=== PATIENT | female | born 1980 | race Caucasian/White ===

== ENCOUNTER 2018-07-26 01:23 | Inpatient (IN) | payer MEDICAID ==
[2018-07-26] MEDS ORDERED: OXYTOCIN 30 UNITS/LR 500 ML IV (01:30)
[2018-07-26] MEDS ORDERED: MISOPROSTOL 200 MCG TAB PR (01:30)
[2018-07-26] MEDS ORDERED: CARBOPROST 250 MCG INJ IM (01:30)
[2018-07-26] MEDS: TERBUTALINE 1 MG/ML INJ SC (01:46)
[2018-07-26] MEDS: LACTATED RINGER'S 1,000 ML IV ×4 (01:47→17:53)
[2018-07-26 01:55] LABS: ADD MAN DIFF? NO
[2018-07-26 01:57] LABS: WHITE BLOOD COUNT 7.5 10^3/ul (4.8-10.8)
[2018-07-26 01:57] LABS: BASOPHILS % 0.5 % (0.0-2.0); EOSINOPHILS # 0.1 10^3/ul (0.0-0.5); EOSINOPHILS % 0.9 % (0.0-7.0); HEMATOCRIT 38.2 % (37.0-47.0); LYMPHOCYTES # 1.5 10^3/ul (0.8-2.9); LYMPHOCYTES % 19.7 % (15.0-51.0); MEAN CORPUSCULAR HEMOGLOBIN 30.2 pg (29.0-33.0); MEAN CORPUSCULAR VOLUME 88.6 fl (82.0-101.0); MEAN PLATELET VOLUME 9.2 fl (7.4-10.4); MONOCYTE # 0.7 10^3/ul (0.3-0.9); MONOCYTES % 8.9 % (0.0-11.0); NEUTROPHIL # 5.1 10^3/ul (1.6-7.5); NEUTROPHILS % 67.6 % (39.0-77.0); PLATELET COUNT 184 10^3/UL (140-415); RED BLOOD COUNT 4.31 10^6/ul (4.20-5.40)
[2018-07-26 02:17] LABS: INR 0.87; PROTIME 11.9 Sec (11.9-14.9); PT RATIO 0.9
[2018-07-26 02:18] LABS: PARTIAL THROMBOPLASTIN TIME 29.5 Sec (23.0-35.0)
[2018-07-26] MEDS: AZITHROMYCIN 500MG/NS (PMX) 250 ML IVPB (02:37)
[2018-07-26] MEDS: ONDANSETRON 4 MG INJ IV ×2 (02:37→03:00)
[2018-07-26] MEDS: CITRIC ACID/NA CITRATE 30 ML CUP PO ×2 (02:37→03:00)
[2018-07-26] MEDS ORDERED: DEXAMETHASONE 4 MG/ML 1 ML INJ (03:22)
[2018-07-26] MEDS ORDERED: morphine SULFATE/PF (10 MG/10 ML) INJ (03:22)
[2018-07-26 03:42] LABS: HEPATITIS B SURFACE ANTIGEN NEGATIVE (NEGATIVE)
[2018-07-26] MEDS ORDERED: ONDANSETRON 4 MG INJ IV (04:30)
[2018-07-26] MEDS ORDERED: ZOLPIDEM 5 MG TAB PO (04:30)
[2018-07-26] MEDS ORDERED: NALOXONE (0.4 MG/ML) INJ IV (04:30)
[2018-07-26] MEDS ORDERED: DIPHENHYDRAMINE 50 MG INJ IV (04:30)
[2018-07-26] MEDS ORDERED: HYDROmorphONE 0.5 MG/0.5 ML SYG IV ×2 (04:30)
[2018-07-26] MEDS: OXYTOCIN 30 UNITS/LR 500 ML IV ×4 (05:15→16:14)
[2018-07-26] MEDS: METHYLERGONOVINE 0.2 MG INJ IM (06:16)
[2018-07-26] MEDS: CEFAZOLIN 2 GM/50 ML (PMX) 50 ML IVPB (06:18)
[2018-07-26] MEDS ORDERED: NACL 0.9% 3 ML SYG IV (06:30)
[2018-07-26] MEDS ORDERED: METHYLERGONOVINE 0.2 MG INJ IM (06:30)
[2018-07-26] MEDS: CARBOPROST 250 MCG INJ IM (06:44)
[2018-07-26] MEDS: MISOPROSTOL 200 MCG TAB PR (06:50)
[2018-07-26] MEDS: KETOROLAC 30 MG INJ IV ×2 (07:08→17:53)
[2018-07-26 07:49] LABS: ADD MAN DIFF? NO
[2018-07-26 07:55] LABS: BASOPHILS % 0.1 % (0.0-2.0); EOSINOPHILS % 0.1 % (0.0-7.0); HEMATOCRIT 39.1 % (37.0-47.0); HEMOGLOBIN 13.1 g/dl (12.0-16.0); LYMPHOCYTES # 0.8 10^3/ul (0.8-2.9); LYMPHOCYTES % 5.6 % (15.0-51.0); MEAN CORPUSCULAR HEMOGLOBIN 29.9 pg (29.0-33.0); MEAN CORPUSCULAR HGB CONC 33.5 g/dl (32.0-37.0); MEAN CORPUSCULAR VOLUME 89.3 fl (82.0-101.0); MEAN PLATELET VOLUME 9.2 fl (7.4-10.4); MONOCYTE # 0.4 10^3/ul (0.3-0.9); MONOCYTES % 2.6 % (0.0-11.0); NEUTROPHIL # 13.3 10^3/ul (1.6-7.5); NEUTROPHILS % 90.4 % (39.0-77.0); PLATELET COUNT 183 10^3/UL (140-415); RED BLOOD COUNT 4.38 10^6/ul (4.20-5.40); RED CELL DISTRIBUTION WIDTH 14.1 % (11.5-14.5)
[2018-07-26 07:55] LABS: WHITE BLOOD COUNT 14.7 10^3/ul (4.8-10.8)
[2018-07-26 08:12] LABS: INR 0.88; PT RATIO 0.9
[2018-07-26 08:13] LABS: PARTIAL THROMBOPLASTIN TIME 29.2 Sec (23.0-35.0)
[2018-07-26 22:37] LABS: RAPID PLASMA REAGIN NONREACTIVE (NR)
[2018-07-27] MEDS: LACTATED RINGER'S 1,000 ML IV ×2 (03:32→09:05)
[2018-07-27] MEDS: KETOROLAC 30 MG INJ IV (03:48)
[2018-07-27] MEDS: IBUPROFEN 800 MG TAB PO ×3 (06:00→17:57)
[2018-07-27 06:33] LABS: ADD MAN DIFF? NO
[2018-07-27 06:43] LABS: BASOPHILS % 0.3 % (0.0-2.0); EOSINOPHILS % 0.4 % (0.0-7.0); HEMATOCRIT 26.7 % (37.0-47.0); HEMOGLOBIN 9.1 g/dl (12.0-16.0); LYMPHOCYTES # 1.3 10^3/ul (0.8-2.9); LYMPHOCYTES % 13.6 % (15.0-51.0); MEAN CORPUSCULAR HEMOGLOBIN 30.8 pg (29.0-33.0); MEAN CORPUSCULAR HGB CONC 34.1 g/dl (32.0-37.0); MEAN CORPUSCULAR VOLUME 90.5 fl (82.0-101.0); MEAN PLATELET VOLUME 9.5 fl (7.4-10.4); MONOCYTE # 0.9 10^3/ul (0.3-0.9); MONOCYTES % 9.1 % (0.0-11.0); NEUTROPHIL # 7.3 10^3/ul (1.6-7.5); NEUTROPHILS % 74.8 % (39.0-77.0); PLATELET COUNT 148 10^3/UL (140-415); RED BLOOD COUNT 2.95 10^6/ul (4.20-5.40); RED CELL DISTRIBUTION WIDTH 14.2 % (11.5-14.5)
[2018-07-27 06:43] LABS: WHITE BLOOD COUNT 9.8 10^3/ul (4.8-10.8)
[2018-07-27] MEDS: LANOLIN HPA 1 PKT TOP (08:53)
[2018-07-27] MEDS: OXYCODONE/ACETAMINOPHEN (5/325) TAB PO ×2 (08:53→16:09)
[2018-07-28] MEDS: IBUPROFEN 800 MG TAB PO ×5 (00:20→23:50)
[2018-07-28] MEDS: OXYCODONE/ACETAMINOPHEN (5/325) TAB PO (10:23)
[2018-07-28] MEDS: MAGNESIUM HYDROXIDE 30ML CUP PO (15:38)
[2018-07-29] MEDS: IBUPROFEN 800 MG TAB PO ×3 (05:34→17:33)
[2018-07-29] MEDS: DIPHTH/TET/ACEL PERTUSS (ADULT) 0.5 ML VIAL IM* (10:12)
[2018-07-29] MEDS: OXYCODONE/ACETAMINOPHEN (5/325) TAB PO (10:20)
== END 2018-07-29 19:55 | disposition home or self-care (01) | DRG 785 ==
LOC: OBT 01:23 → L-D 01:24 → OBT 01:32 → L-D 01:32 → PP1 08:53
PROVIDERS: Obstetrics & Gynecology
PROC: 10D00Z1 Extraction of Products of Conception, Low, Open Approach (ICD-10-PCS; principal; 2018-07-26)
PROC: 0UB70ZZ Excision of Bilateral Fallopian Tubes, Open Approach (ICD-10-PCS; 2018-07-26)
PROC: 4A1HXCZ Monitoring of Products of Conception, Cardiac Rate, External Approach (ICD-10-PCS; 2018-07-26)
PROC: 3E0234Z Introduction of Serum, Toxoid and Vaccine into Muscle, Percutaneous Approach (ICD-10-PCS; 2018-07-29)
DX: O34.219 Maternal care for unspecified type scar from previous cesarean delivery (principal); Z3A.37 37 weeks gestation of pregnancy; Z37.0 Single live birth; Z30.2 Encounter for sterilization; Z23 Encounter for immunization
CPT/HCPCS: 85025; 85610; 85730; 86592; 86850; 86900; 86901; 87340; 88302; 90715; 99464